=== PATIENT | male | born 1930 | race Caucasian/White ===

== ENCOUNTER 2016-08-20 16:00 | Inpatient (IN) | payer MEDICARE, BC ==
[~2016-08-20] VITALS: Ht 172.7 cm; Wt 96.1 kg
--- NOTE | ~2016-08-20 | OR ---
PATIENT'S NAME: CODY WATERMAN [facility] AGE: 86 Y [address] ROOM: [place] [address] LOCATION: [facility] [place] ADMIT DATE: 08/26/2016 OR/Procedure Report DISCHARGE DATE: FAMILY PHYSICIAN: Jj Nava MD ATTENDING PHYSICIAN: Wally Mejia SURGEON: Wally Mejia MD [employer] HEAD INSPECTOR AND ADJUSTER: Ranjeet Almanzar PA-C DATE OF PROCEDURE: 08/25/2016 PREOPERATIVE DIAGNOSES: 1. History of acute cholecystitis with cholelithiasis, status post cholecystostomy tube for drainage. 2. History of repair of aortic dissection. POSTOPERATIVE DIAGNOSES: 1. Gangrenous cholecystitis with cholelithiasis. 2. Normal intraoperative cholangiogram. PROCEDURE PERFORMED: Laparoscopic cholecystectomy with intraoperative cholangiogram. ANESTHESIA: General. ESTIMATED BLOOD LOSS: 50 mL. SPECIMENS: Gallbladder. CHOLANGIOGRAM FINDINGS: Normal cystic duct and common bile duct anatomy with free flow of contrast into the duodenum. No filling defects. INDICATION: The patient is an 86-year-old gentleman who initially presented with dissecting ascending thoracic aneurysm. Dr. Skaggs did a graft repair, and the patient was on inpatient rehab. Approximately one month ago, he developed cholecystitis while on Plavix. We elected at that time to do a percutaneous cholecystostomy tube for decompression. The patient currently is one month postop. He has been off his anticoagulation, and he agreed to undergo formal laparoscopic cholecystectomy to complete his operative intervention and treatment of his gallbladder disease. DESCRIPTION OF PROCEDURE: After informed consent, the patient was taken to the operating room. After general endotracheal anesthesia, the patient's abdomen was prepped and draped into a sterile field. Local anesthetic infiltrated prior to each incision, the first one made below the umbilicus and carried down to identify the anterior fascia through which a Veress needle inserted. Pneumoperitoneum was created, and trocar and laparoscope inserted. PATIENT'S NAME: CODY WATERMAN [facility] AGE: 86 Y [address] ROOM: [place] [address] LOCATION: [facility] [place] ADMIT DATE: 08/26/2016 OR/Procedure Report DISCHARGE DATE: FAMILY PHYSICIAN: Jj Nava MD ATTENDING PHYSICIAN: Wally Mejia Safe entry was noted. Under direct vision, the remaining trocars were placed in standard position. We visualized the cholecystostomy tube going into the gallbladder. The fundus was very thickened and a lot inflammatory changes which had to be carefully stripped away. We did not harm the transverse colon as we took it off the gallbladder wall attachment. We could tell that the gallbladder likely had gangrenous changes. We had to place an additional 5 mm trocar in the left upper quadrant to use a fan to hold down the transverse colon and duodenum as we exposed the infundibulum. The adhesions were very tenacious at this point, very chronic inflammatory changes noted. We began by helping our critical view of safety by taking down the lateral gallbladder reflection on the liver bed. Once we used electrocautery to score the initial incision into the duodenal ligament, we were able to start carefully and slowly strip down the adhesions. Finally, we were able to see what we thought was the cystic duct. Likely, it was enlarged. We were able to get circumferential control around it. At this point, we elected to do a cholangiogram to prove our anatomy and make sure no retained stones. Our cholangiogram was performed with Isovue-[id number]. The above-mentioned normal anatomy and no filling defect were identified. We removed the catheter, and we now confidently placed 3 clips on the cystic duct and divided it. We carefully dissected and identified presumably a lymphatic duct by the gallbladder and placed a clip on it. Then, we stripped it down to expose the cystic artery. It was clipped x3 and divided, and the gallbladder removed from the liver bed slowly due to chronic adhesions, and electrocautery was used to obtain hemostasis. Once removed, we pulled out the cholecystostomy tube. We put the gallbladder into an EndoCatch bag and brought it out through the umbilical incision in pieces due to the gangrenous changes. We then returned to the right upper quadrant and copiously irrigated and cauterized the liver bed as needed. We felt we had obtained hemostasis. There was no bleeding from the liver bed. We removed the trocars, released the pneumoperitoneum, closed the midline fascia defects with 0 Vicryl, and the skin closed with subcuticular 4-0 Vicryl. Steri-Strips and sterile dressings applied. The patient tolerated the procedure well, transferred to the recovery room in stable condition. MD VICKY MENDOZAS/modl /[id number] d: 09/04/161740 t: 09/17/161740, OPERATIVE SUMMARY
--- NOTE | ~2016-08-20 | DS ---
PATIENT'S NAME: CODY WATERMAN [facility] AGE: 86 Y [address] ROOM: [address] [address] [place] [facility] [place]: 08/26/2016 Discharge Summary DISCHARGE DATE: 09/05/2016 FAMILY PHYSICIAN: Jj Nava MD ATTENDING PHYSICIAN: Alexander Prescott FINAL DIAGNOSES: 1. Gangrenous cholecystitis, cholelithiasis. 2. History of ascending thoracic aneurysm repair. 3. Anemia of acute blood loss secondary to laparoscopic cholecystectomy. 4. Hypertension. 5. Gastroesophageal reflux disease. PROCEDURE: Laparoscopic cholecystectomy with intraoperative cholangiogram. HOSPITAL COURSE: The patient is a pleasant, 86-year-old gentleman who, beginning of July, presented with a dissecting ascending thoracic aneurysm. He underwent a repair per Dr. Skaggs. The patient ended up in inpatient rehab. During his stay, he developed cholecystitis with cholelithiasis while on Plavix. The patient underwent a percutaneous cholecystostomy tube placement for temporizing the current situation. He did well from that standpoint, had clear bile being drained through his cholecystostomy tube. His liver function tests returned to normal. His white count returned to normal. After one month and the stopping of the Plavix, we elected to undergo a gallbladder removal. The patient had this laparoscopic cholecystectomy with intraoperative cholangiogram performed on 08/25/2016. Due to the inflammatory, necrotic nature of the gallbladder, bleeding was noted from the gallbladder fossa. The patient started out anemic and went down to a low of 6.7. He started at 10.6. He received 2 units of blood. This helped stabilize his hemodynamic situation, and his hemoglobin had risen up to 9.4 on last check on 09/01/2016. The patient had continuation of his OT and PT therapy. He was advanced to a regular diet. His antibiotics were discontinued in the postop period. His wounds healed nicely without evidence of infection. His abdomen became benign. He had return of bowel function and advanced to a regular diet. He was reevaluated per Dr. Persaud and found in need of additional inpatient rehab prior to being discharged home. On 09/05/2016, he was accepted into inpatient rehab. The Hospital Service will continue to follow along with Dr. Persaud. The general surgery team will sign off. His medication list is signed and on chart for review. The patient is transferred in stable condition. ALEXANDER PRESCOTT MD PATIENT'S NAME: CODY WATERMAN [facility] AGE: 86 Y [address] ROOM: [place] [address] [place] [facility] [place]: 08/26/2016 Discharge Summary DISCHARGE DATE: 09/05/2016 FAMILY PHYSICIAN: Jj Nava MD ATTENDING PHYSICIAN: Alexander Prescott WTS/modl /[id number] d: 09/05/16 1358 t: 09/17/16 1743, DISCHARGE SUMMARY
--- NOTE | ~2016-08-20 | CON ---
PATIENT'S NAME: CODY WATERMAN [facility] AGE: 86 Y [address] ROOM: [address] [address] [place] [facility] [place]: 08/26/2016 Consultation DISCHARGE DATE: FAMILY PHYSICIAN: Jj Nava MD ATTENDING PHYSICIAN: Wally Mejia REFERRING PHYSICIAN: LAURO JOSEPH MD This is a Consult for Dr. Joseph and Ms. Ranjeet Almanzar. This 86-year-old gentleman whom I know from previous care, he was on Rehab unit from 07/23/2016 until 08/25/2016 when he was discharged, and did undergo cholecystectomy per Dr. Mejia on 08/25/2016 and details on record. He is referred now for rehab GIRP evaluation. PAST MEDICAL HISTORY: 1. Still unsteady with his gait and needs help with activity of daily self- care. 2. Status post type A aortic aneurysm repair per Dr. Skaggs. Details on record. 3. Hypertension. 4. Reflux gastric disease. 5. Possible seizure disorder. 6. Benign prostatic hypertrophy. 7. Acute cholecystitis, was drained, and later on, he did undergo cholecystectomy on 08/25/2016. All details are on record. 8. He was also anemic and on sternal precaution, which has at the present time corrected, and has been discontinued with sternal precautions. He is now alert and oriented. VITAL SIGNS: Blood pressure 116/61, temperature 98.5, pulse 84, and respiratory rate 18. He is 5 feet, 8 inches tall and weighs 96.1 kg. He can follow instructions well, can transfer with minimum assistance; however, he feels very tired early on with his effort and would ask frequently to sit and rest especially when he is up and around. He can ambulate up to 150 feet; however, he is unsteady and needs to use front- wheeled walker. Minimum to contact guard assistance and also with a gait belt. He otherwise will look at his feet and is at high-risk of falling. Neurologically intact at the present time. He is on the following medications: 1. Bumex. 2. Protonix. PATIENT'S NAME: CODY WATERMAN [facility] AGE: 86 Y [address] ROOM: [address] [address] [place] [facility] [place]: 08/26/2016 Consultation DISCHARGE DATE: FAMILY PHYSICIAN: Jj Nava MD ATTENDING PHYSICIAN: Wally Mejia 3. Klonopin. 4. Coreg. 5. Cordarone. 6. Albuterol. 7. Sodium chloride 0.9%. 8. Morphine sulfate. 9. Tylenol. 10. Zofran. At the present time, I feel this gentleman will benefit from intensive rehabilitation of about 2 weeks aiming to discharge home at modified independence and follow on outpatient basis. I will continue him on PT, OT, which has been already initiated for him and I feel that he definitely is well- motivated to achieve those goals. Thank you for this referral. I will take him as soon as we can for intensive rehabilitation. I explained everything to him. He verbalized understanding and agreement with plan of care. MD GABINO MONTENEGRO/artemiol /[id number] d: 09/03/160 t: 09/05/16 0803, CONSULTATION REPORT
[~2016-08-20 16:00] MED LIST: HEADACHE RELIE1 EACH PO; NAPROSYN500 MG PO; TENORETIC PO
--- NOTE | 2016-08-25 17:09 | NUR ---
Significant Event:PT. TO FLOOR AT 1445 WITH LAP JACLYN. PREVIOUSLY ON REHAB BEFORE SURGERY. A/O AND HAS FOUR STAB SITES, 2 MID ABDOMIN ARE SATURATED WITH RED DRAINAGE. MAY S/L IV WHEN TOLERATING CLEAR LIQUIDS. UP TO BR AND TOLERATED WELL. VOIDED LARGE AMOUNT. C/O RUQ ABDOMINAL PAIN. MORPHINE GIVEN IV AT 1530 AND ORAL PAIN MED GIVEN AT 1705. TAKING CLEAR LIQUIDS MAY HAVE REGULAR DIET FOR DINNER. SON HERE FOR A WHILE. HX SMOKER, COPD, AORTIC ARCH REPAIR 07/11/16 WITH AFIB AFTER PROCEDURE. Follow up:
[2016-08-25 17:55] LABS: HEMATOCRIT 37.6 % (33.0-50.0); HEMOGLOBIN 11.6 g/dL (11.0-16.0)
--- NOTE | 2016-08-25 17:58 | NUR ---
PT. DIAPHORETIC AND C/O RUQ PAIN AT 7/10. GAVE 2 ORAL PAIN MED AT 1705, 1720 STILL RATING RUQ PAIN AT 7/10. ATTEMPTED TO SIT PT UP AT BEDSIDE AND HE BACAME DIZZY AND STATED HE FELT BAD ALL OVER. ALERT AND VERBALIZING WELL. BECAME PALE AND RETURNED TO BED. CALLED CHARGE NURSE AND RAPID RESPONSE. PT. INITIAL BLOOD PRESSURE WAS 102/66, P-93, 95% ON 2L PER NC AT 1720. 1730- 66/48, P-101, 1730-93/52, BED PLACED IN [place] POSITION. PT STILL VERBALIZES WELL, A/O. 1740- 96/62, P-95, 1745-94/62, P-98, 94% ON 2L, 1800 115/67, P-93, 97% ON 2L. 500ML NS BOLUS STARTED. PT ALERT AND RESPONDS APPROPRIATELY. C/O RUQ PAIN. 1810- AWAKENS EASILY BUT DOSING NOW, BP 122/75, P-93, 96% 2L PER NC.
[2016-08-25 23:58] LABS: BASOPHIL % 0.1 %; HEMATOCRIT 31.3 % (33.0-50.0); HEMOGLOBIN 9.4 g/dL (11.0-16.0); IMMATURE GRANULOCYTE # 0.1 K/uL (0.0-0.3); IMMATURE GRANULOCYTE % 0.6 %; LYMPHOCYTE # 0.7 K/uL (0.8-4.0); LYMPHOCYTE % 3.1 %; MCH 28.7 pg (27.0-34.0); MCV 95.4 fl (83.0-98.0); MONOCYTE # 1.5 K/uL (0.0-1.0); MONOCYTE % 6.7 %; MPV 10.5 fl (9.4-12.4); NEUTROPHIL # (ANC) 19.7 K/uL (1.4-9.0); NEUTROPHIL % 89.5 %; NRBC % 0 /100WBC (0-0.00); RBC 3.28 M/uL (3.50-5.50); RDW-CV 14.9 % (11.9-14.6)
[2016-08-26] LABS: PLATELET COUNT 277 K/uL (150-450); WBC 22.1 K/uL (4.0-11.0)
[2016-08-26 00:16] LABS: ALBUMIN 2.6 gm/dL (3.5-5.0); CALCIUM 8.3 mg/dL (8.5-10.5); TOTAL PROTEIN 6.4 g/dL (6.0-8.4)
[2016-08-26 00:17] LABS: CREATININE 1.6 mg/dL (0.6-1.3); TOTAL BILIRUBIN 0.5 mg/dL (0.0-1.5)
--- NOTE | 2016-08-26 05:10 | NUR ---
PATIENT IS ATTEMPTED TO GET [place] TO [facility] [place]. HE BECAME EXTREMELY DIAPHORETIC AND HYPOTENSIVE. HIS BP WAS 88/52, HR 101. HE WAS PLACED BACK IN BED. DR. JOSEPH NOTIFIED AND IS IN ROOM TO ASSESS PATIENT. SHORTLY AFTER PATIENT BEGAN TO EXPERIENCE NAUSEA/VOMITING. ZOFRAN WAS ADMINISTERED. 500CC BOLUS ORDERED AND STARTED AT 2022. AT 2099 BP WAS 99/[address], [address] JOSEPH INSTRUCTS TO ADMINISTER 500CC BOLUS OVER 1 HOUR AND TO ASSESS PATIENT'S TOLERANCE OF SITTING UP. AT 2129 BOLUS IS FINISHED AND PATIENT'S HOB IS ELEVATED AT 45 DEGREES. PATIET'S BP DROPS AGAIN TO 81/43. AN ADDITIONAL 500CC BOLUS IS ORDERED. PATIENT HAD NOT YET VOIDED. BLADDER SCAN SHOWS 215 CC. SECOND IV IS STARTED. VS AT 2224: HR 103, 96% ON ROOM AIR, AND BP IS 89/57. PATIENT IS PLACED IN [place]. AT 2229 WHEN THIS BOLUS IS FINISHED, BP IS 79/54 AFTER SITTING HOB U 45 DEGREES AND CONTINUES TO DROP TO 63/47. PATIENT IS NOT TOLERATING WELL AND IS EXPERIENCING EMESIS WITH THE HYPOTENSIVE EPISODES. DR. DENG IS NOTIFIED AT 2239 AND IS IN TO REVIEW CHART AND SEE PATIENT. ORDERS ARE OBTAINED FOR LAB AND XRAY. DRESSINGS TO ABDOMEN ARE UNCHANGED. FOLLOWING THE LAST LITER BOLUS PATIENT'S BP BEGAN TO RESPOND. PATIENT IS TOLD TO LAY FLAT. PATIENT IS MADE NPO FOLLOWING DR. ORONA REVIEW OF KUB. IV ABX ORDERED AND INITIATED. PATIENT IS UPDATED ON PLAN OF CARE.
--- NOTE | 2016-08-26 06:05 | NUR ---
Significant Event: PATIENT HAD LAP JACLYN AFTER BEING ON REHAB FOR AN AORTIC PROCEDURE. HAS BEEN ALERT AND ORIENTED AND HAS 5 INCISIONS TO ABDOMEN 2 OF WHICH WERE CHANGED DUE TO BEING SATURATED. EARLY IN SHIFT PATIENT WAS ASSISTED UP TO SIDE OF BED WHICH RESULTED IN SEVERE ORTHOSTATIC HYPOTENSION, DIAPHORESIS, TACHYCARDIA AND DIZZINESS. PATIENT RECEIVED A TOTAL OF 3L OF IVF AND WAS INSTRUCTED TO LAY FLAT AND NOT GET UP. STAT LABS AND KUB OBTAINED SHOWING WBC OF 22 AND AN ILEUS. PATIENT IS NPO, IV ABX STARTED. ORDER TO PLACE NGT IF VOMITING PERSISTS. NS AT 100ML/HR INFUSING. PATIENT IS FEELING BETTER. LASTEST BP WAS 116/74. MORPHINE ADMINSITERED FOR PAIN. Follow up:
[2016-08-26 06:18] LABS: MCH 28.9 pg (27.0-34.0); MCV 93.2 fl (83.0-98.0); MPV 10.6 fl (9.4-12.4); PLATELET COUNT 244 K/uL (150-450); RBC 3.11 M/uL (3.50-5.50); RDW-CV 15.2 % (11.9-14.6)
[2016-08-26 06:20] LABS: WBC 20.7 K/uL (4.0-11.0)
[2016-08-26 06:28] LABS: ALBUMIN 2.6 gm/dL (3.5-5.0); ANION GAP 16.1 (10.0-19.0); CALCIUM 8.3 mg/dL (8.5-10.5); CREATININE 1.5 mg/dL (0.6-1.3); POTASSIUM 5.1 mMol/L (3.7-5.1); TOTAL BILIRUBIN 0.5 mg/dL (0.0-1.5); TOTAL PROTEIN 6.4 g/dL (6.0-8.4)
[2016-08-26 07:10] LABS: ABSOLUTE NEUTROPHIL CT (ANC) 18.8 K/uL (1.4-9.0); BANDED NEUTROPHIL # 1.4 K/uL (0.0-0.1); BANDED NEUTROPHILS % 7 %; LYMPHOCYTE # 1.4 K/uL (0.8-4.0); LYMPHOCYTE % 7 %; MONOCYTE # 0.4 K/uL (0.0-1.0); SEGMENTED NEUTROPHIL # 17.4 K/uL (1.4-9.0); SEGMENTED NEUTROPHIL % 84 %
--- NOTE | 2016-08-26 15:46 | NUR ---
Met patient at bedside today. Introduced myself and the role of the CM department. Patient is not feeling well today. He lives with his and grand daughter. He also says his son is available at any time. Will continue to follow and offer supports as needed.
[2016-08-26] MEDS ORDERED: CORDARONE,PACE200 MG PO (16:31)
[2016-08-26] MEDS ORDERED: LIPITOR10 MG PO (16:32)
[2016-08-26] MEDS ORDERED: ASPIRIN (CHILDR81 MG PO (16:32)
[2016-08-26] MEDS ORDERED: BUMEX1 MG PO (16:33)
[2016-08-26] MEDS ORDERED: COREG 3.1253.125 MG PO (16:33)
[2016-08-26] MEDS ORDERED: KLONOPIN0.5 MG PO (16:34)
[2016-08-26] MEDS ORDERED: BENADRYL25 MG PO (16:34)
[2016-08-26] MEDS ORDERED: PEPCID20 MG PO (16:35)
[2016-08-26] MEDS ORDERED: COLACE100 MG PO (16:35)
[2016-08-26] MEDS ORDERED: K-TAB OR KLOR-10 MEQ PO (16:36)
[2016-08-26] MEDS ORDERED: TYLENOL325 MG PO (16:37)
[2016-08-26] MEDS ORDERED: PREPARATION H O57 GM TOP (16:41)
[2016-08-26] MEDS ORDERED: ULTRAM50 MG PO (16:42)
[2016-08-26] MEDS ORDERED: PROVENTIL OR V6.7 GM INH (16:43)
[2016-08-26] MEDS ORDERED: NORCO 5-325 TA1 EACH PO (16:45)
--- NOTE | 2016-08-26 17:07 | NUR ---
Significant Event:PT AO. BP HAVE BEEN BETTER THIS SHIFT. RUNNING 100/56-118/64. TITRATED TO ROOM AIR, BUT SATS DROP TO 85%, PUT ON 1L O2. ENCOURAGED IS USE. PT DID GET UP TO BSC AND CHAIR TODAY. STILL C/O DIZZINESS WHEN UP. PT CONSULT BUT PT DID NOT FEEL LIKE DOING ANYTHING AT THE TIME. ABDOMEN IS DISTENDED. CAN HAVE SIPS OF WATER AND ICE CHIPS. HOME MED RECON COMPLETED AND ADDRESSED BY DR AREVALO, DR PRESCOTT WANTS TO HOLD OFF ON PO PILLS UNTIL PT PASSING GAS. NO EMESIS THIS SHIFT. DRESSINGS TO ABDOMEN INTACT. PRN MORPHINE X2, LAST AT 1605. VOIDING SMALL AMOUNTS AT A TIME, BLADDER SCAN FOR 209ML. CHEST XRAY COMPLETED. NEED A UA. LABS IN AM. Follow up: UA, ORTHOSTATICS, PAIN CONTROL
[2016-08-26 18:53] LABS: BILIRUBIN URINE NEGATIVE (NEGATIVE); BLOOD URINE NEGATIVE /UL (NEGATIVE); COLOR URINE YELLOW (YELLOW); GLUCOSE URINE NEGATIVE (NEGATIVE); KETONE URINE NEGATIVE (NEGATIVE); LEUKOCYTES URINE NEGATIVE /UL (NEGATIVE); NITRITE URINE NEGATIVE (NEGATIVE); PROTEIN URINE 15 mg/dL (NEGATIVE); TURBIDITY URINE 1+ (CLEAR); UROBILINOGEN URINE NORMAL (NORMAL)
[2016-08-26 19:02] LABS: RBC URINE NEGATIVE #/HPF (NEGATIVE)
[2016-08-26 19:03] LABS: BACTERIA URINE NEGATIVE (NEGATIVE)
--- NOTE | 2016-08-27 04:43 | NUR ---
Significant Event:PT [id number] PLEASANT WITH CARES AND STAFF. UP TO BEDSIDE COMMODE WITH 1 STAFF ASSIST. DOES WELL. 5 SURGICAL SITES TO ABDOMEN, DRESSING C/D/I. COMPLAINS OF ABDOMINAL PAIN WIHT MOVEMENT. BOWEL SOUNDS ACTIVE, PT IS PASSING GAS. ABDOMEN IS DISTENED AND FIRM, DOES HAVE PAIN WIHT PALPATION HOWEVER STATES THAT HE IS FEELING BETTER WITH EACH HOUR. UA COLLECTED THIS SHIFT, PT VOIDING WITH NO COMLICATION NOTED. NACL RUNNING AT 100ML PER HOUR.LUNG SOUND CLEAR/DIMINISHED IN THE BASES. GENERALIZED EDEMA NOTED. PT 02 PER NASAL CANNULA AT 1L. DENIES SOB WHEN ASKED.VSS DURING SHIFT. IV TO RIGHT FOREARM DC'D DUE TO LEAKING. FLUIDS CHANGED TO LEFT AC IV SITE. Follow up:
[2016-08-27 05:54] LABS: ALBUMIN 2.4 gm/dL (3.5-5.0); ANION GAP 14.3 (10.0-19.0); BLOOD UREA NITROGEN 38 mg/dL (6-24); CALCIUM 7.9 mg/dL (8.5-10.5); CHLORIDE 106 mMol/L (96-110); CO2 26 mMol/L (22-32); MAGNESIUM 2.1 mg/dL (1.3-2.6); PHOSPHORUS 2.2 mg/dL (2.5-4.9); POTASSIUM 4.3 mMol/L (3.7-5.1); SODIUM 142 mMol/L (135-145)
[2016-08-27 05:59] LABS: ESTIMATED GFR (MDRD EQUATION) > 60
[2016-08-27 06:08] LABS: BASOPHIL % 0.2 %; EOSINOPHIL % 0.2 %; IMMATURE GRANULOCYTE # 0.1 K/uL (0.0-0.3); IMMATURE GRANULOCYTE % 0.6 %; LYMPHOCYTE # 1.3 K/uL (0.8-4.0); MCV 93.9 fl (83.0-98.0); MONOCYTE # 1.3 K/uL (0.0-1.0); MONOCYTE % 10.1 %; MPV 10.1 fl (9.4-12.4); NEUTROPHIL # (ANC) 10.5 K/uL (1.4-9.0); NEUTROPHIL % 78.9 %; NRBC % 0 /100WBC (0-0.00); RDW-CV 15.7 % (11.9-14.6); WBC 13.2 K/uL (4.0-11.0)
[2016-08-27 06:11] LABS: HEMATOCRIT 21.5 % (33.0-50.0); HEMOGLOBIN 6.7 g/dL (11.0-16.0); MCH 29.3 pg (27.0-34.0); MCHC 31.2 gm/dL (32.0-36.5); PLATELET COUNT 173 K/uL (150-450); RBC 2.29 M/uL (3.50-5.50)
[2016-08-27 12:57] LABS: HEMATOCRIT 20.7 % (33.0-50.0)
[2016-08-27 13:05] LABS: HEMOGLOBIN 6.4 g/dL (11.0-16.0)
--- NOTE | 2016-08-27 14:49 | NUR ---
Phone call placed to patient's son Bao at [phone] to discuss the family's plan/goal for patient with discharge. Bao did not answer so I left him a voicemail introducing myself and explaining my role with his father's care. Will wait to hear back from Bao.
--- NOTE | 2016-08-27 15:27 | NUR ---
Is A/O.Old chest incision healing & scabbed over.5 abd.stab sites covered with gauze/tegaderm drsg which are D/I.Taking sips liq.Abd.is firm,+ bowel sounds.Is passing flatus.Had dulcolax suppository at 0945.Had really small hard formed dk brown stool.Had CT of chest/abd.this afternoon.To get 1 unit blood today.Hgb was 9 yesterday and 6.7 at 0600 this morning and 6.4 this afternoon.Did have aortic aneurysm repair recently.Need stool for hematest.Has been up in chair and amb.in marcus with PT.Is pale.Gets somewhat SOB on activity.Also some dizziness when up.
[2016-08-27 18:59] LABS: HEMATOCRIT 24.4 % (33.0-50.0)
[2016-08-27 19:00] LABS: HEMOGLOBIN 7.6 g/dL (11.0-16.0)
[2016-08-28 00:29] LABS: HEMATOCRIT 24.8 % (33.0-50.0)
[2016-08-28 00:31] LABS: HEMOGLOBIN 7.9 g/dL (11.0-16.0)
--- NOTE | 2016-08-28 04:46 | NUR ---
Significant Event: A&Ox3, hypotension this shift. BP: 100s/50s-80s/50s. All other VSS on room air. 1L O2 applied at HS. Lap sites X5 to ABD, dressings C/D/I. New bruising around lap sites. 2 units PRBC given. Last HGB 7.9, checking H&H Q6hrs, Orders to call MD if HGB less than 7. Patient transfers with 1-2PA, GB, walker. 2PA for saftey as patient can become dizzy upon standing. No complaints of dizziness this shift. Albumin IV given for lower BPs. Daily weight. Voids per BSC. Morphine and tylenol given for pain control. Follow up: monitor BPs, continue with plan of care.
[2016-08-28 05:47] LABS: BASOPHIL % 0.4 %; EOSINOPHIL # 0.1 K/uL (0.0-0.5); EOSINOPHIL % 0.6 %; HEMATOCRIT 22.4 % (33.0-50.0); IMMATURE GRANULOCYTE % 0.2 %; LYMPHOCYTE # 0.8 K/uL (0.8-4.0); LYMPHOCYTE % 9.6 %; MCV 92.2 fl (83.0-98.0); MONOCYTE % 12.4 %; MPV 9.8 fl (9.4-12.4); NEUTROPHIL # (ANC) 6.3 K/uL (1.4-9.0); NEUTROPHIL % 76.8 %; NRBC % 0 /100WBC (0-0.00); RBC 2.43 M/uL (3.50-5.50); RDW-CV 15.7 % (11.9-14.6); WBC 8.2 K/uL (4.0-11.0)
[2016-08-28 05:51] LABS: HEMOGLOBIN 7.2 g/dL (11.0-16.0); MCH 29.6 pg (27.0-34.0); MCHC 32.1 gm/dL (32.0-36.5); PLATELET COUNT 122 K/uL (150-450)
[2016-08-28 06:00] LABS: ANION GAP 13.7 (10.0-19.0); BLOOD UREA NITROGEN 25 mg/dL (6-24); CHLORIDE 104 mMol/L (96-110); CO2 25 mMol/L (22-32); CREATININE 0.7 mg/dL (0.6-1.3); ESTIMATED GFR (MDRD EQUATION) > 60; MAGNESIUM 2.2 mg/dL (1.3-2.6); POTASSIUM 3.7 mMol/L (3.7-5.1); SODIUM 139 mMol/L (135-145)
[2016-08-28 11:31] LABS: HEMATOCRIT 24.8 % (33.0-50.0); HEMOGLOBIN 7.9 g/dL (11.0-16.0)
--- NOTE | 2016-08-28 14:40 | NUR ---
1400 UNABLE TO TREAD POWER GLIDE
--- NOTE | 2016-08-28 18:33 | NUR ---
AAOx3. Cooperative with cares. Up w/1-2assistSKYLAR. PIV to R) outer FA w/IVF and Abx infusing. Feeling unwell and not receptive to PO fluids. Encourage increased intake. Encourage use of IS. Intermittently on 1-2liters O2 today for sats in upper 80s. Passing flatus. Showered today with assist. Lap site dressings dry and intact to abdomen; some ecchymosis noted.
[2016-08-28 19:21] LABS: HEMATOCRIT 24.3 % (33.0-50.0)
[2016-08-28 19:25] LABS: HEMOGLOBIN 7.8 g/dL (11.0-16.0)
[2016-08-29 03:25] LABS: BASOPHIL % 0.3 %; EOSINOPHIL # 0.1 K/uL (0.0-0.5); EOSINOPHIL % 1.4 %; HEMATOCRIT 24.7 % (33.0-50.0); IMMATURE GRANULOCYTE % 0.3 %; LYMPHOCYTE % 13.6 %; MCH 29.3 pg (27.0-34.0); MCHC 31.2 gm/dL (32.0-36.5); MCV 93.9 fl (83.0-98.0); MONOCYTE # 0.8 K/uL (0.0-1.0); MONOCYTE % 10.6 %; MPV 10.2 fl (9.4-12.4); NEUTROPHIL # (ANC) 5.4 K/uL (1.4-9.0); NEUTROPHIL % 73.8 %; NRBC % 0 /100WBC (0-0.00); PLATELET COUNT 143 K/uL (150-450); RBC 2.63 M/uL (3.50-5.50); RDW-CV 15.9 % (11.9-14.6); WBC 7.3 K/uL (4.0-11.0)
[2016-08-29 03:31] LABS: HEMOGLOBIN 7.7 g/dL (11.0-16.0)
--- NOTE | 2016-08-29 04:38 | NUR ---
Significant Event: Pt alert and Oriented x3. 1 assist with gaitbelt and walker. tele on no calls. hypotensive at times otherwise VSS. 1 L too keep sat >90 percent. denies SOB. Uses bedside commode. unwilling to ambulate more. IV in right forarm NS 50 ML/HR. weight 96.1 KG this shift. DW I/O. encourage PO intake. tylenol given x2 for complaints of pain. with relief. passing gas. lap sites intact with mulitple bruising through out abdomen. q8hr H/H. 7.7 HGB throughout this shift. kary hernandez on durring the day. Follow up:
--- NOTE | 2016-08-29 10:10 | NUR ---
A - NUT F/U. ENC PO INTAKE. PRBCS GIVEN. LABS: BUN/CR 25/0.7, ALB 2.4, HGB/HCT 7.7/24.7 MEDS: PROTONIX, ZYVOX, ZOSYN, NAUSEA DIET: FULL LIQUID. INTAKE: SIPS NEEDS: [id number] KCAL, 105-140 G PRO D - INADEQUATE NUTRIENT INTAKE R/T DECREASED APPETITE AEB INTAKE RECORD, DIET ORDER HX. I - GOAL FOR ORAL INTAKE TOLERANCE. GOAL FOR INCREASED ORAL INTAKE. WILL ADD ENSURE TID M/E - WILL MONITOR INTAKE F/U IN 4-5 DAYS.
[2016-08-29 11:27] LABS: HEMATOCRIT 24.7 % (33.0-50.0)
[2016-08-29 11:30] LABS: HEMOGLOBIN 7.7 g/dL (11.0-16.0)
--- NOTE | 2016-08-29 17:16 | NUR ---
AAOx3. Cooperative with cares. Up w/1 assist, GB, walker. BM x3 today. Last one diarrhea, but brown. Hat in backside for Cdiff sample; need order too. Tolerating soft diet slowly. Had chicken noodle soup, ice cream today. Advanced to soft diet as patient doesn't care for most full liquids available. Ambulation, d/c'ing epidural, IS
[2016-08-29 19:11] LABS: HEMATOCRIT 25.4 % (33.0-50.0)
--- NOTE | 2016-08-30 02:40 | NUR ---
Significant Event: Pt alert and oriented x3. cooperative with cares. 1 assist with gait belt. pt has tremors at times. tele on no calls. RA through out the shift at sats >90%. denies any SOB. DW, I/O. encourage PO intake of fluids. tylenol given x1 for some discomfort. weight 96.1. kary hose on durring the day. VSS. Lap sites intact with bruising through out the abdomen. pt slept on and off through out the night Follow up:
[2016-08-30 05:51] LABS: BASOPHIL % 0.5 %; EOSINOPHIL # 0.2 K/uL (0.0-0.5); EOSINOPHIL % 3.6 %; IMMATURE GRANULOCYTE % 0.3 %; LYMPHOCYTE # 0.7 K/uL (0.8-4.0); LYMPHOCYTE % 11.4 %; MCH 29.6 pg (27.0-34.0); MCHC 32.1 gm/dL (32.0-36.5); MCV 92.3 fl (83.0-98.0); MONOCYTE # 0.7 K/uL (0.0-1.0); MONOCYTE % 11.4 %; MPV 9.8 fl (9.4-12.4); NEUTROPHIL # (ANC) 4.5 K/uL (1.4-9.0); NEUTROPHIL % 72.8 %; NRBC % 0 /100WBC (0-0.00); PLATELET COUNT 140 K/uL (150-450); RDW-CV 15.9 % (11.9-14.6); WBC 6.1 K/uL (4.0-11.0)
[2016-08-30 05:53] LABS: HEMOGLOBIN 7.7 g/dL (11.0-16.0)
[2016-08-30 06:09] LABS: ANION GAP 15.2 (10.0-19.0); BLOOD UREA NITROGEN 14 mg/dL (6-24); CALCIUM 8.1 mg/dL (8.5-10.5); CHLORIDE 106 mMol/L (96-110); CO2 24 mMol/L (22-32); CREATININE 0.7 mg/dL (0.6-1.3); ESTIMATED GFR (MDRD EQUATION) > 60; POTASSIUM 3.2 mMol/L (3.7-5.1); SODIUM 142 mMol/L (135-145)
--- NOTE | 2016-08-30 18:04 | NUR ---
Significant Event: Patient alert and oriented. Tylenol 1000 mg given at 0851 for c/o abdominal discomfort. Up to the bathroom with assist to void and patient had a small BM late this afternoon. Ambulated in the hallway x 2 and has been up in the recliner all shift. Patient short of breath with activity. K+ level at 3.2 this morning and patient received KCL 40 meq orally at 1315 and 1730. Started on Coreg 3.125mg bid. Continues on IV Zosyn. Telemetry on with no calls received. Follow up: Ambualte this evening.
--- NOTE | 2016-08-31 03:30 | NUR ---
SIGNIFICANT EVENT: Patient alert & oriented. C/O numbness/tingling bilateral LE's/feet. States that this has been happening more since his heart surgery but is more noticeable/frequent. Also c/o spasticity in bilateral upper extremities to upper neck/chin area. 1000 mg Tylenol given approx 2029 for abd pain/back pain. Full liquid diet - wants chocolate ice cream and milk for breakfast. Got 40 mEq KCl yesterday. Tele on - no calls. 1 JAGDISH dorantes and SKYLAR. VSS on RA. Cooperative with cares.
[2016-08-31 05:11] LABS: BASOPHIL % 0.4 %; EOSINOPHIL # 0.4 K/uL (0.0-0.5); EOSINOPHIL % 4.7 %; HEMOGLOBIN 9.3 g/dL (11.0-16.0); IMMATURE GRANULOCYTE % 0.4 %; LYMPHOCYTE % 12.4 %; MCH 29.9 pg (27.0-34.0); MCV 93.9 fl (83.0-98.0); MONOCYTE # 0.8 K/uL (0.0-1.0); MONOCYTE % 10.2 %; MPV 9.8 fl (9.4-12.4); NEUTROPHIL # (ANC) 5.8 K/uL (1.4-9.0); NEUTROPHIL % 71.9 %; NRBC % 0 /100WBC (0-0.00); RBC 3.11 M/uL (3.50-5.50); RDW-CV 16.3 % (11.9-14.6); WBC 8.1 K/uL (4.0-11.0)
[2016-08-31 05:13] LABS: HEMATOCRIT 29.2 % (33.0-50.0); MCHC 31.8 gm/dL (32.0-36.5); PLATELET COUNT 199 K/uL (150-450)
[2016-08-31 05:28] LABS: ANION GAP 11.9 (10.0-19.0); BLOOD UREA NITROGEN 16 mg/dL (6-24); CALCIUM 8.7 mg/dL (8.5-10.5); CHLORIDE 106 mMol/L (96-110); CO2 27 mMol/L (22-32); CREATININE 0.7 mg/dL (0.6-1.3); ESTIMATED GFR (MDRD EQUATION) > 60; POTASSIUM 3.9 mMol/L (3.7-5.1); SODIUM 141 mMol/L (135-145)
--- NOTE | 2016-08-31 05:54 | NUR ---
SIGNIFICANT EVENT: Patient alert & oriented. VSS on RA. Slept some in recliner until approx 2014. Tylenol x1 at that time with noted relief. C/O more noticeable bilateral lower extremity numbness/tingling, tightness in forehead, increased upper extremity tremors/shaking. Hospitalist visited this a.m. - new order for Klonopin. 570 PO and 193 IV in. 3 voids, 2 sm BM. 1 PA with walker, GB. IV to R) FA is SL except intermittent antibiotics. Pleasant and cooperative with cares.
--- NOTE | 2016-08-31 16:59 | NUR ---
Significant Event: Patient alert and oriented. Up to the bathroom with assist to void and patient has had 1 small, loose BM for the shift. Ambulated in the hallway x 2 and up in the recliner this afternoon. Patient short of breath with activity. Patient states wanting to sleep "all the time". Continues on IV Zosyn. Patient states that his tremors are less today. Patient states having minimal discomfort and has refused any need for pain meds. Lap sites to abdomen covered with gauze and tegaderm. Large bruising noted to his RLQ and lower abdomen. Telemetry on with no calls received. Follow up: Ambulate this evening.
[2016-09-01 06:52] LABS: HEMATOCRIT 29.8 % (33.0-50.0); HEMOGLOBIN 9.4 g/dL (11.0-16.0)
--- NOTE | 2016-09-01 07:11 | NUR ---
SIGNIFICANT EVENT: Patient alert & oriented. 1 PA walker and gaitbelt. Tylenol x1, last given approx 2229. Regular diet but only taking some solids, poor appetite - prefers broth, ice cream, bananas. PIV to R) FA is SL, intermittent antibiotics - flushes well, no BR. VSS on RA, some tachypnea on exertion. Ambulate in marcus x1. Pleasant and cooperative with cares.
--- NOTE | 2016-09-01 15:02 | NUR ---
Consult received this morning to see if patient can return to [facility] for a short period of time to get stronger before going home. I contacted Lizet at [facility] and she said they would assess patient and see if they would have a bed available for him this week. I will wait to hear back from her and I will talk to the patient and family.
--- NOTE | 2016-09-01 16:36 | NUR ---
SIGNIFICANT EVENT: PT AOX3. VSS ON RA, AFEBRILE. DAILY ORTHOSTATICS DOCUMENTED ON CHART. TELEMETRY ON WITH NO CALLS. IV TO R FA, SL- CONTINUES ON INTERMITTENT IV ABX. PT/OT WORKING WITH. AMBULATES WITH SBA, GAITBELT AND WALKER. REGULAR DIET ORDERED, ONLY HAD MILK AND BROTH FOR BREAKFAST- TALKED HIM INTO TRYING MORE FOR LUNCH AND HE AT 100% PERSONAL PIZZA, BUT ONLY BROTH AND BANANA FOR DINNER. LAP SITES TO ABDOMEN INTACT. MULTIPLE SMALL BMs THIS SHIFT, MOSTLY LIQUID. PLAN IS POSSIBLY TO GIRP THIS WEEK. FOLLOW UP: AMBULATE, CONTINUE TO MONITOR
--- NOTE | 2016-09-02 05:20 | NUR ---
Significant Event: ALERT AND ORIENTED FORGETFUL AT TIMES. AMBULATES WITH 1-2 ASSIST WALKER GAITBELT. REGULAR DIET. NEEDS ENCOURAGEMENT TO EAT. TELE. VS WNL ON RA. AFEBRILE. LAP SITES OT ABDOMEN INTACT. TELE NO CALLS. CONTINUES ON IV ANTIBOTIC. COORPERATIVE WITH CARES.
--- NOTE | 2016-09-02 12:38 | NUR ---
Significant Event: Alert/oriented. Up in room and halls with standby assist with walke and gait belt. IS at bedside - needs encouraged to use. Tele on - running normal sinus rhythm. Occasional non-productive cough. Lap sites x4 - dressings intact w/ echhymmotic areas. Chest incisions from previous surgery healing w/ scabs. Patient tolerating regular diet well. Rehab is to come assess pt for possible transfer as early as 09/04 when they have a bed open. Pttiing edema to lower extremities. CHAD hose on. Bumex dose increased today. Open area to mid back noted - educated patient on importance of staying off of back and turning side to side while in bed to prevent further breakdown. Follow up: Encourge and assist with activity. Turning q 2 hrs - monitor area on back. Transfer to rehab on 09/04?
--- NOTE | 2016-09-02 14:45 | NUR ---
A-NUTRITION F/U OPEN AREA TO MID-BACK. 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 PO INTAKE 75-100% SINCE YESTERDAY; NOT MANY FOOD CHOICES/VARIETY AT MEALS. BANANA, MILK AND ENSURE AT BRK, PIZZA AND ENSURE AT LUNCH AND BANANA AND ENSURE ENLIVE AT DINNER. PER RN REPORT, PT'S APPETITE IS IMPROVED TODAY AND HE ACTED INTERESTED IN FOOD. EST NUTR NEEDS: [id number] KCALS AND 105-140 GM PROTEIN D-AT NUTRITION RISK W/INADEUATE INTAKE OF NUTRIENTS R/T DECREASED APPETITE AEB INTAKE RECORDS, FOOD CHOICES. I-1)CONTINUE W/ENSURE ENLIVE TID W/MEALS 2)ADD ENSURE PUDDING BID AT L/D M/E-GOAL: PO INTAKE TO MEET >/=50% OF PT'S NUTRIENT NEEDS BY NEXT F/U 1)F/U PO INTAKE, SUPPLEMENT, AND POC IN 3-4 DAYS 2)ASSIST NEEDED
--- NOTE | 2016-09-03 05:22 | NUR ---
Significant Event: ALERT AND ORIENTATED X 3 FORGETFUL AT TIMES. ALARMS ON IN CHAIR AND BED WILL SELF TRANSFER. AMBULATES WITH WALKER, GB AND STAND BY ASSIST IN HALLS AND TO BATHROOM. TELE ON NO CALLS THIS SHIFT. CHAD HOSE ON THE AM OFF HS. LAP SISTES X4 DRESSINGS INTACT. OLD MIDLINE INCISION SCABED OVER FROM PREVIOUS SURGERY. OPEN AREA ON BACK ENCOURAGE TO REPOSITON Q 2 HOURS TO PREVENT BREAK DOWN. APPLIED LOTION TO BACK AT HS. SAT IN CHAIR UNTIL READY FOR BED WITH FEET ON 2 PILLOWS. COORPERATIVE WITH CARES. Follow up:
--- NOTE | 2016-09-03 16:53 | NUR ---
Phone call from Lizet on [facility] approximately [address] Persaud is planning on evaluating patient today and if he accepts patient the patient would not be able to come until Thursday as the patient that was to discharge today will not discharge until tomorrow. At approximately [address] Persaud on the floor and he just finished assessing patient. Dr. Persaud states patient can come to [facility] on Thursday and told me to call Lizet tomorrow to confirm bed and time. I let Noemy real estate office supervisor Nurse know that patient is not able to go until Thursday now. Will meet with patient tomorrow after I confirm with Lizet.
--- NOTE | 2016-09-03 17:38 | NUR ---
Significant Event:Is A/O.Has had no c/o pain.No N/V but not much of an appetite.SL lt.forearm.Voiding ok & had 3 small stools.Up with walker & standby or 1 assist.Maybe to [facility] on Thu. Follow up:
--- NOTE | 2016-09-04 05:04 | NUR ---
Significant Event: AAOX3, REMEMBERS LIMITATIONS, BUT REFUSES TO UTILIZE CALL LIGHT SYSTEM. ALARM ON BED, LEVEL 2 AT ALL TIMES. TELE ON, NO CALLS THIS SHIFT. PT C/O ITCHY BACK, LOTION APPLIED X2. 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 BOTTOM A LITTLE REDDENED AND BLANCHABLE, ENCOURAGED PT TO KEEP HOB FAR DOWN TOLERABLE, AND TO SHIFT POSITIONS IN BED. COOPERATIVE WITH CARES. RESTED WELL THROUGHOUT SHIFT. Follow up:
--- NOTE | 2016-09-04 08:31 | NUR ---
PT MOVED TO NO RISK W/ CONSISTENT 75-100% ORAL INTAKE. WILL CONTINUE SUPPLEMENTS TO MAINTAIN NUTRITION STATUS.
--- NOTE | 2016-09-04 13:50 | NUR ---
Phone call to Lizet on [facility] this morning. They are able to accept patient at 0900 tomorrow, ThursdaySeptember 05. I met with patient at approximately 1015 and notified him of the plan to transfer to [facility] tomorrow. Patient is in agreement with this plan. Packet has been started.
--- NOTE | 2016-09-04 14:34 | NUR ---
PT REFUSED SHOWER HE STATES HE HAD ONE YESTERDAY. PT IS ALSO REFUSING TO WEAR GATE BELT WHEN AMBULATING TO THE BATHROOM. HE TRIED TO REFUSE SOCKS BUT WAS ABLE TO CONVINCE THAT THEY WERE IMPORTANT.
--- NOTE | 2016-09-04 17:04 | NUR ---
Significant Event: Patient up with standby assist and doing well. Does know how to turn off bed alarm by himself. Needs encouraged to use call light prior to getting up to the bathroom. Denies needs. Has worked with therapy. Denies pain. Should go over to inpatient rehab tomorrow at 0900. Follow up: Continue to monitor.
--- NOTE | 2016-09-05 04:00 | NUR ---
Patient alert and oriented x3, pleasant and cooperative, has called neal for toileting however it was passed on that he knows how to shut off the bed alarm, refused to wear gaitbelt during ambulation does fine standby assit with walker to the bathroom. To go to [facility] today, has rested well tonight
--- NOTE | 2016-09-05 07:35 | NUR ---
Pt had lap cortez on 08/25. Lap sites 4 to abdomen, steri-strips are loose, falling off. Lots of bruising to abdomen. Healed incision to chest from AAA previously repaired. Had episodes of hypotension post-op lap cortez, dropping hgb, emesis. Xray showed ileus, CT scan of abdomen showed bleeding from Liver. PRBCs transfused. Pt has since stabilized. Telemtry on. PT/OT working with. Ambulates with SBA, walker. Tolerates regular diet, does have decreased appetite still. Last BM 09/03. Saline lock to R fa. AOx3. Vitals this am 106/55, 82HR, 14RR, 91% RA, 98.4. Lungs clear and diminished. Bowel sounds active. Denies pain.
== END 2016-09-05 10:05 | disposition other institution (70) | DRG 853 ==
LOC: GMSU 08-25 10:01
PROVIDERS: Hospitalist; Internal Medicine; Physician Assistant; ADMIT Surgery
PROC: 0FT44ZZ Resection of Gallbladder, Percutaneous Endoscopic Approach (ICD-10-PCS; principal; 2016-08-25)
PROC: BF10YZZ Fluoroscopy of Bile Ducts using Other Contrast (ICD-10-PCS; 2016-08-25)
PROC: 30233N1 Transfusion of Nonautologous Red Blood Cells into Peripheral Vein, Percutaneous Approach (ICD-10-PCS; 2016-08-27)
DX: A41.9 Sepsis, unspecified organism (principal); J96.01 Acute respiratory failure with hypoxia; K80.12 Calculus of gallbladder with acute and chronic cholecystitis without obstruction; J44.9 Chronic obstructive pulmonary disease, unspecified; G40.909 Epilepsy, unspecified, not intractable, without status epilepticus; I48.0 Paroxysmal atrial fibrillation; D62 Acute posthemorrhagic anemia; I10 Essential (primary) hypertension; K91.3 Postprocedural intestinal obstruction; K21.9 Gastro-esophageal reflux disease without esophagitis; Z79.01 Long term (current) use of anticoagulants; Z79.82 Long term (current) use of aspirin
CPT/HCPCS: C1751; C9113; J0694; J1100; J1650; J2001; J2020; J2270; J2405; J2543; J3370; J7030; J7040; J7050; J7120; P9016; P9047; Q9967

== ENCOUNTER 2016-09-05 10:17 | Inpatient (IN) | payer MEDICARE, BC ==
[~2016-09-05] VITALS: Ht 177.8 cm; Wt 91.9 kg
--- NOTE | ~2016-09-05 | HP ---
PATIENT'S NAME: CODY WATERMAN [facility] AGE: 86 Y [address] ROOM: [place] [address] LOCATION: [facility] ADMIT DATE: 09/05/2016 History & Physical DISCHARGE DATE: FAMILY PHYSICIAN: Jj Nava MD ATTENDING PHYSICIAN: Wally Persaud DATE OF SERVICE: HISTORY OF PRESENT ILLNESS: This 86-year-old gentleman was admitted to rehab unit at [facility] after cholecystectomy and on 09/05/2016 for continuous medical treatment and intensive rehabilitation. 1. Unstable gait. 2. Dependent on activities of daily and self-care. 3. Status post marked weakness with anemia, status post cholecystectomy. At this time, he is alert and oriented. Vitals on admission were as follows: Blood pressure 106/55, temperature 98.4, pulse 82, respiratory rate 14, he is 5 feet 8 inches tall and weighs 96.1 kg. ALLERGIES: NO KNOWN ALLERGIES. MEDICATIONS: He is on the following medications: 1. Cordarone 200 mg p.o. daily. 2. Bumex 2 mg p.o. daily. 3. Coreg 3.125 mg p.o. twice daily with meals. 4. Klonopin 0.5 mg p.o. twice daily. 5. Protonix 40 mg p.o. daily at 7 o'clock. 6. Sodium chloride 0.9% per protocol IV as needed. 7. Tylenol 1000 mg p.o. 3 times daily as needed p.r.n., do not exceed acetaminophen 4 g q.24 hours. 8. Zofran 4 mg IV or p.o. q.4 hours as needed. 9. KCl 20 mEq p.o. daily. 10. Albuterol 6.7 mg 2 puffs q.4 hours as needed. 11. Albuterol 2.5 mg q.4 hours as needed. 12. Naprosyn 500 mg twice daily. 13. Aspirin with acetaminophen and caffeine 1 tablet p.o. q.6 hours. 14. Aspirin 81 mg p.o. daily. 15. Lipitor 10 mg p.o. daily. 16. Benadryl 12.5 mg p.o. at night. 17. Colace 100 mg p.o. b.i.d. 18. Pepcid 20 mg p.o. b.i.d. 19. Preparation H as needed locally. 20. Ultram 50 mg p.o. daily. PATIENT'S NAME: CODY WATERMAN [facility] AGE: 86 Y [address] ROOM: [place] [address] LOCATION: [facility] ADMIT DATE: 09/05/2016 History & Physical DISCHARGE DATE: FAMILY PHYSICIAN: Jj Nava MD ATTENDING PHYSICIAN: Wally Persaud 21. [place] 5/325 mg p.o. q.4 hours. PAST MEDICAL HISTORY: 1. Significant history of possible seizure disorder. 2. Recently, he did have an ascending aortic aneurysm repair. 3. Bilateral thoracocentesis for fluid accumulation per history and recently. 4. COPD. 5. Reflux gastric disease. 6. Cholecystectomy recently per Dr. Mejia. 7. Anemia. 8. Hypertension. 9. Possible seizure disorder. At the present time, we will put on intensive PT/OT 3 hours per day, 15 hours per week for the coming 2 weeks aiming to discharge on modified independence. Note, I did see this gentleman on recent consult on 09/03/2016 and recommended 2 weeks of intensive rehabilitation with PT/OT and send him afterwards on a regular basis for outpatient followup and today on admission on 09/05/2016, upon re-evaluation, I recommend intensive rehab for about 2 weeks aiming to discharge with modified independence. We will send in the a.m. CBC, CMS, and prealbumin, which is back today. CBC is as follows: White BC 6.6, RBC 3.09, hemoglobin 9.1, hematocrit 29.2, and platelets 225. CMS: Sodium 137, potassium 3.4, we will adjust. Chloride 100, CO2 28, BUN 21, creatinine 0.7, and glucose 91. PT 12.8 and INR 1.2. UA grossly normal. Prealbumin 10.0. He can ambulate up to 150 with no assistive device slowly, but is fatiguing early with effort. All the plan of care was explained to him in detail. He verbalized understanding and agreement with plan of care. PATIENT'S NAME: CODY WATERMAN [facility] AGE: 86 Y [address] ROOM: [place] [address] LOCATION: [facility] ADMIT DATE: 09/05/2016 History & Physical DISCHARGE DATE: FAMILY PHYSICIAN: Jj Nava MD ATTENDING PHYSICIAN: Wally Persaud MD WMS/modl /[id number] D: [id number] T: [id number] HISTORY & PHYSICAL
--- NOTE | ~2016-09-05 | DS ---
PATIENT'S NAME: CODY WATERMAN [facility] AGE: 86 Y [address] ROOM: [address] [place], [place] [address] LOCATION: [facility] ADMIT DATE: 09/05/2016 Discharge Summary DISCHARGE DATE: FAMILY PHYSICIAN: Jj Nava MD ATTENDING PHYSICIAN: Alexander Cornell HISTORY OF PRESENT ILLNESS: This 86-year-old gentleman was readmitted to rehab unit on 09/05/2016 after he did undergo a laparoscopic cholecystectomy and on 09/19/2016 is discharged to home on 09/11/2016. He is doing well, alert, and oriented. PHYSICAL EXAMINATION: VITAL SIGNS: Blood pressure 96/52, temperature 98.1, pulse 72, respiration rate 14. MUSCULOSKELETAL: He can transfer independently. He ambulated 600 feet x1, 300 feet x1, and again in the p.m., plan was 300 feet x1 with forward flex posture and frequently he will use rails and/or wall to support himself a little bit with forward bent posture. He will go on outpatient PT/OT 3 times per week for the coming 4 weeks. I will see him thereafter. Follow up with Dr. Skaggs and Dr. Mejia each as he sees fit. He must follow with his family physician as soon as possible. He should not drive until he is re-evaluated. Medication given as follows for 30 days and any renewals would be through his family physician. MEDICATIONS: 1. Cordarone 200 mg p.o. daily. 2. Aspirin 81 mg p.o. daily. 3. Lipitor 10 mg every day. 4. Bumex 2 mg p.o. daily. 5. Coreg 3.125 mg b.i.d. 6. Klonopin 0.5 mg p.o. b.i.d. 7. Benadryl 12.5 mg p.o. at night at bedtime. 8. Colace 100 mg p.o. b.i.d. 9. Naprosyn 500 mg p.o. twice daily. 10. Protonix 40 mg p.o. q.700. 11. K tablet 20 mEq p.o. daily. 12. Ultram 50 mg p.o. q.6 hours as needed, 46 of them, renewal through his family physician. 13. Albuterol sulfate 2 puffs every 4 hours as needed. PATIENT'S NAME: CODY WATERMAN [facility] AGE: 86 Y [address] ROOM: [place] [address] LOCATION: [facility] ADMIT DATE: 09/05/2016 Discharge Summary DISCHARGE DATE: FAMILY PHYSICIAN: Jj Nava MD ATTENDING PHYSICIAN: Alexander Cornell FINAL DIAGNOSES: 1. Unstable gait. 2. Dependent activities of daily and self-care. 3. Marked weakness, not now, improving. 4. Status post laparoscopic cholecystectomy on 08/25/2016. 5. Hypertension. 6. Benign prostatic hypertrophy. 7. 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 8. Chronic obstructive pulmonary disease. 9. Seizure disorder at one point, now stable. 10. Anemia. 11. Reflux gastric disease. FOLLOWUP: 1. The patient is advised to follow with his family physician as soon as possible. All medication that are given to him renewal or change per his family physician. 2. He will follow up with me in 4 weeks. Meanwhile, he will continue with PT/OT 3 times per week for 4 weeks. 3. We will follow with Dr. Skaggs and Dr. Mejia each as he sees fit. 4. He must follow with his family physician as soon as possible. No driving until he is re-evaluated. All the above was explained to him in detail and all his questions answered. He verbalized understanding and agreement with plan of care. ALEXANDER CORNELL MD WMS/modl /[id number] d: 09/11/16737 t: 09/11/16820, DISCHARGE SUMMARY
--- NOTE | ~2016-09-05 | CON ---
PATIENT'S NAME: ORACIO WATERMAN [facility] AGE: 86 Y [address] ROOM: [address] [address] LOCATION: [facility] ADMIT DATE: 09/05/2016 Consultation DISCHARGE DATE: 09/11/2016 FAMILY PHYSICIAN: Jj Nava MD ATTENDING PHYSICIAN: Wally Cornell DATE OF CONSULTATION: 09/10/2016 REFERRING PHYSICIAN: Wally Mejia MD Team members reporting include: Dr. Cornell; Lizet Albarado, public health social worker; Kalyn Law, RN; Katlyn Chavarria, PT; Christel Mcnamara, PT; Brittany Fernandez, OT; Mandy Robertson, therapeutic rec; and Sister Donna Orozco, Pastoral Care. CURRENT STATUS: Includes: Oracio is an 86-year-old man, who admitted to our inpatient rehabilitation unit for a second time on 09/05/2016 following a cholecystectomy. Prior to that the patient had been in the rehabilitation unit on 07/23/2016 following a triple A repair. The patient has a history of the gangrenous cholecystitis and cholelithiasis, history of ascending thoracic aneurysm repair, anemia of acute blood loss secondary to laparoscopic cholecystectomy, hypertension, and gastroesophageal reflux disease. The patient does have a small open area on his bottom. He is continent of bowel and bladder. He does have a couple of open areas on his abdomen with Steri- Strips and overall bruising. He is on a regular diet. Prealbumin is 10. He can complete all of his transfers independently. He can ambulate 400 feet with no device or a front-wheeled walker with cues for posture. He can climb 12 stairs with one railing at standby assistance and he can propel his wheelchair at stand-by assistance. He has met 4/9 long-term PT goals. The patient can dress his upper and lower body at standby; grooming, independent; bathing, standby; toilet and shower transfers, mod I; toileting, mod I; and feeding, independent. The patient's car transfers are currently at standby. The patient has been very open to pastoral care. DISCHARGE PLAN: The patient is receiving 3 hours of PT, OT Thursday through Thursday. The patient has daily Rehabilitation, Nursing, and Physiatry involvement as well as Therapeutic Recreational Services 4 days per week. The patient has shown functional improvement and is progressing. Please see his plan of care for specific goals. Plan is for patient to discharge on 09/11/2016. The patient will have Outpatient Therapy Services. LIZET ALBARADO FOR WALLY CORNELL MD PATIENT'S NAME: ORACIO WATERMAN [facility] AGE: 86 Y [address] ROOM: [place] [address] LOCATION: [facility] ADMIT DATE: 09/05/2016 Consultation DISCHARGE DATE: 09/11/2016 FAMILY PHYSICIAN: Jj Nava MD ATTENDING PHYSICIAN: Wally Cornell TD/artemiol /[id number] d: t: 09/24/16 1801, CONSULTATION REPORT
[~2016-09-05 10:17] MED LIST changes: +ASPIRIN (CHILDR81 MG PO; +BENADRYL25 MG PO; +BUMEX1 MG PO; +COLACE100 MG PO; +CORDARONE,PACE200 MG PO; +COREG 3.1253.125 MG PO; +K-TAB OR KLOR-10 MEQ PO; +KLONOPIN0.5 MG PO; +LIPITOR10 MG PO; +NORCO 5-325 TA1 EACH PO; +PEPCID20 MG PO; +PREPARATION H O57 GM TOP; +PROVENTIL OR V6.7 GM INH; +TYLENOL325 MG PO; +ULTRAM50 MG PO
--- NOTE | 2016-09-05 14:31 | NUR ---
PATIENT ADMITTED TO [facility] FROM [facility]. AAA REPAIR IN JULY, GIOVANNY ANAYA ON 08/25. AMBULATES WITH 1 ASSIST, WALKER, GAIT BELT. ALERT AND ORIENTED X3. 4 LAP SITES PRESENT, STERI STRIPPED. INCISIONS FROM AAA REPAIR INTACT AND HEALED. PATIENT DENIES PAIN. VITALS STABLE ON ROOM AIR. TELE ON, WAITING FOR ORDER TO DC. PILLS WHOLE WITH WATER. IV TO RIGHT ARM.
[2016-09-05 21:31] LABS: BILIRUBIN URINE NEGATIVE (NEGATIVE); BLOOD URINE 10 /UL (NEGATIVE); COLOR URINE YELLOW (YELLOW); GLUCOSE URINE NEGATIVE (NEGATIVE); KETONE URINE NEGATIVE (NEGATIVE); LEUKOCYTES URINE NEGATIVE /UL (NEGATIVE); NITRITE URINE NEGATIVE (NEGATIVE); PROTEIN URINE NEGATIVE (NEGATIVE); SPEC GRAVITY URINE 1.015 (1.003-1.035); TURBIDITY URINE CLEAR (CLEAR); UROBILINOGEN URINE 1 mg/dL (NORMAL)
[2016-09-05 21:41] LABS: RBC URINE NEGATIVE #/HPF (NEGATIVE); WBC URINE 0-2 #/HPF (NEGATIVE)
[2016-09-05 21:42] LABS: BACTERIA URINE NEGATIVE (NEGATIVE); EPITHELIAL URINE RARE #/HPF (NEGATIVE)
--- NOTE | 2016-09-06 03:46 | NUR ---
Significant Event:Reminders given to call staff prior to getting up, using walker and one assist. Needs reminders to stand tall when walking. Very bruised abdomen of different hues, states discomfort to lower/mid rt side of abdomen, slightly firm to one area with large shola bruise to this area. Has steristrips to stab wounds on abd from lap cortez, only scant old drainage beneath the one at umbilicus. Healed incision to sternal chest from triple A repair. Coccyx reddened, aloevesta cream applied. Saline lock to rt forearm, no blood return but does flush. 101/50. Had scheduled Naprosyn at hs, no prn meds given. Rates discomfort at 1-2. Small bm on day shift yest. 1590 oral intake, has voided x 3. UA collected and shows blood, otherwise negative. Had liquids for supper, no solids but did take Ensure. Follow up: Inquire about removal of saline lock.
[2016-09-06 05:16] LABS: BASOPHIL % 0.5 %; EOSINOPHIL # 0.3 K/uL (0.0-0.5); HEMATOCRIT 29.2 % (33.0-50.0); HEMOGLOBIN 9.1 g/dL (11.0-16.0); IMMATURE GRANULOCYTE % 0.6 %; LYMPHOCYTE # 1.1 K/uL (0.8-4.0); LYMPHOCYTE % 17.3 %; MCH 29.4 pg (27.0-34.0); MCHC 31.2 gm/dL (32.0-36.5); MCV 94.5 fl (83.0-98.0); MONOCYTE # 0.9 K/uL (0.0-1.0); MONOCYTE % 13.9 %; MPV 9.9 fl (9.4-12.4); NEUTROPHIL # (ANC) 4.2 K/uL (1.4-9.0); NEUTROPHIL % 63.7 %; NRBC % 0 /100WBC (0-0.00); PLATELET COUNT 225 K/uL (150-450); RBC 3.09 M/uL (3.50-5.50); RDW-CV 16.7 % (11.9-14.6); WBC 6.6 K/uL (4.0-11.0)
[2016-09-06 05:28] LABS: INR - (THERAPEUTIC) 1.2 (0.9-1.1); PROTIME 12.8 SECONDS (9.6-11.1)
[2016-09-06 05:30] LABS: ALBUMIN 2.4 gm/dL (3.5-5.0); ALK PHOS 85 IU/L (33-138); ALT 20 IU/L (12-78); ANION GAP 12.4 (10.0-19.0); AST 28 IU/L (10-40); BLOOD UREA NITROGEN 21 mg/dL (6-24); CALCIUM 8.4 mg/dL (8.5-10.5); CHLORIDE 100 mMol/L (96-110); CO2 28 mMol/L (22-32); CREATININE 0.7 mg/dL (0.6-1.3); ESTIMATED GFR (MDRD EQUATION) > 60; POTASSIUM 3.4 mMol/L (3.7-5.1); SODIUM 137 mMol/L (135-145); TOTAL PROTEIN 6.2 g/dL (6.0-8.4)
[2016-09-06 05:34] LABS: TOTAL BILIRUBIN 0.8 mg/dL (0.0-1.5)
--- NOTE | 2016-09-06 16:34 | NUR ---
Significant Event:PATIENT ALERT AND ORIENTED THIS SHIFT. VSS. TRANSFERS WITH MIN SBA. DID GO TO THERAPY THIS AFTERNOON. REPORTS THAT THERAPIST TOLD HIM HE COULD TRANSFER TO BATHROOM BY HIMSELF. WILL HAVE TO CHECK WITH THERAPY TOMORROW SHE WAS GONE ALREADY. HAS DENIED PAIN TODAY. HAS EATEN FAIR. UP IN WHEELCHAIR FOR AWHILE TODAY AND THEN TO RECLINER TO REST. NO OTHER COMPLAINTS. Follow up:
--- NOTE | 2016-09-07 05:32 | NUR ---
Alert and oriented. BP a bit low @ 100/56. Up ad jory to bathroom, as pt states therapy gave him the okay yesterday. Please check with them today to be sure. Sleeps in recliner. Denies need for pain meds. Steristrips intact over abdominal surgical stab wounds. Significant ecchymosis to lower and rt side of abdomen.
--- NOTE | 2016-09-07 14:06 | NUR ---
Significant Event: Alert and oriented x 3. Up ad jory with walker. Denies pain. Family present this afternoon. Participated in some therapy this morning. Uses call light appropriately. Follow up:
--- NOTE | 2016-09-08 04:37 | NUR ---
Alert and oriented. Calls for assistance as needed. Up ad jory with walker.Denies need for pain meds. BP= 108/56. Need to order his breakfast at 7am. Just banana and 2% milk
--- NOTE | 2016-09-08 14:23 | NUR ---
Significant Event:PATIENT ALERT AND ORIENTED THIS SHIFT. VSS. TRANSFERS INDEPENDANTLY. RESTS IN RECLINER WHEN NOT IN THERAPY. HAS DENIED PAIN THIS SHIFT. HAS LOTS OF BRUISING TO ABDOMEN YET BUT IS HEALING WELL. DOES HAVE A COUPLE STERI STRIPS YET. NO OTHER COMPLAINTS. Follow up:
--- NOTE | 2016-09-09 02:56 | NUR ---
Significant Event: Patient alert and oriented x 3. VSS. Up ad jory in room. Denies pain or discomfort. Abdomen with bruising t/o, 4 stab sites healing well with steri strips. Abdomen is distended patient feels bloated. States no BM for 2 days. May need some MOM tonight if no BM today. Sleeps in recliner. Follow up: Monitor for BM.
--- NOTE | 2016-09-09 08:30 | NUR ---
D: Therapeutic Recreation Initial Assessment on the 09/09/16. I: Patient seen for 2 units to begin initial evaluation. Pt his known to Therapies from prior admission. 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 Information obtained: Interview, Chart Review, Observation, other. BARRIERS TO LEISURE: Physical, Lifestyle (1-2+drinks per night) Transportation Patient determined to be: APPROPRIATE FOR THERAPEUTIC RECREATION ASSESSMENT. TREATMENT WILL INCLUDE: Community living skills training Functional leisure development Physical skills development Cognitive skills development Social skills development Leisure education Emotional/behavioral adaptation Family education Community resources/packet TARGET EQUIPMENT/INFORMATION: Parking Permit WILL NEED Community Resources Energy conservation in community setting Van/Service/Taxi Scrip Adapted Leisure Equipment Stress management/Relaxation techniques Functional car transfers Leisure Education Behaviors: Attitude, Awareness, Participation. Patient functional skills level and potential: Good, pt demonstrates good mobility with concerns for coping and adjustment to current physical limitations. Patient oriented ot TR services on Rehab unit. Pt/family provided input into goals setting and plan of care. Pt's goal to return home, be independent and resume prior lifestyle. P: Target date set with personal goals established. Will continue with POC focusing on pt/family training and education. For additional information please see Nursing Data Base, PT, OT, CM, initial assessments to [facility] and Interdisciplinary Assessments.
--- NOTE | 2016-09-09 13:17 | NUR ---
A-SCREENED D/T LOS; NEW ADMIT TO [facility] AAA REPAIR JULY 2016; INTACT AND HEALED. LAP JACLYN ON 08/25/16 HT: 70 IN. CBW 91.9 KG; ADMIT WT 91.1 KG. BMI 29.0 LABS: NA 137, K+ 3.4, GLU 91, BUN 21, SPUD DRILLER 0.7, ALB 2.4 MEDS: BUMEX, PROTONIX, COLACE, KLONOPIN, LIPITOR, NORCO, ULTRAM, ZOFRAN DIET RX: REGULAR W/ENSURE ENLIVE TID AND ENSURE PUDDING BID. PO INTAKE HAS BEEN 75-100% FOR THE MOST PART. EXPECT TO SEE PREALB TREND UP WITH CONTINUED GOOD PO INTAKE. EST NUTR NEEDS: 5558-1361 KCALS (20-25 KCALS/KG) 92-110 GM PROTEIN (1.0-1.2 GM/KG) 1 ML FLUID/KCAL D-NOT AT NUTRITION RISK; NO NUTRITION DX IDENTIFIED. I-1)D/C ENSURE ENLIVE AT BRK; CONTINUE BID AT L/D 2)CONTINUE ENSURE PUDDING AT L/D M/E-GOAL: PO INTAKE >/=75% FOR DURATION OF ADMIT 1)F/U PO INTAKE, LABS, WT, AND POC IN 6-8 DAYS 2)ASSIST NEEDED
--- NOTE | 2016-09-09 15:22 | NUR ---
Significant Event:PATIENT ALERT AND ORIENTED THIS SHIFT. VSS. TRANSFERS INDEPENDANTLY. STEADY ON HIS FEET. RESTS IN RECLINER WHEN NOT IN THERAPY. ABDOMEN HAS MULTIPLE ECCHYMOTIC AREAS FROM SURGERY AND INCISIONS. INCISIONS HEALING. STILL HAS A COUPLE STERI STRIPS IN PLACE. HAS DENIED PAIN THIS SHIFT. NO OTHER COMPLAINTS. Follow up:
--- NOTE | 2016-09-09 16:11 | NUR ---
D: TR progress note for 09/09/13. I: Pt seen for 2 units at 1230 for community integration skills building, functional transfers, and safety awareness. R: Pt seen for functional skills building working on mobility, safety, awareness and functional transfers to increase independence in anticipation for discharge back into community. Pt transferred sit > stand from WC SBA, ambulated to/from vehicle SBA and transferred in/out of vehicle SBA with cues for safety. Pt was mod I for BLE management and positioning of self with seat surface adapted using trash bag to ease task. Pt tolerated ride with no C/o pain or discomfort. P: Will continue to see to address goals and plan of care.
--- NOTE | 2016-09-10 04:33 | NUR ---
Significant Event: PATIENT IS ALERT AND ORIENTED. VSS. UP AD JOSE IN ROOM. DENIES PAIN. BRUISING NOTED TO ABDOMEN WELL PUNCTURE SITES. PATIENT HAD BM YESTERDAY. Follow up:
--- NOTE | 2016-09-10 10:29 | NUR ---
Significant Event:PT REPORTED HE WAS TIRED THIS AM. THERAPY SHOWERED, AND DRESSED. ATE MEAL IN ROOM. NO COMPLAINTS OF PAIN. TAKES MEDS WITHOUT DIFFICULTY. ADB INCISIONS HEALING, FEW STERI STRIPS IN PLACE. PT PLANS FOR DISCHARGE TOMORROW. PT HAS BEEN PLEASANT AND COOPERATIVE WITH PLAN OF CARE. Follow up:UP AD JOSE.
--- NOTE | 2016-09-10 11:41 | NUR ---
D: TR progress note for 09/10/16. I: Pt seen for 2 units at 1100 in group session for education on pain/stress management, coping strategies, group participation and leisure education. R: Pt seen for functional skills building working on stress management, relaxation and education on signs and symptoms of depression to promote recovery. Pt actively participated in session, completed functional social communication skills independently which involved personal introduction of self and hometown. Education completed by verbal discussion on the physical stress/pain can cause the body and how it affects healing along with identification of coping strategies, relaxation techniques, and options available. Pt initiated comments with peers/staff with bright affect and good insight. P: Will continue to see to address goals and plan of care.
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
[2016-09-11] MEDS ORDERED: PROTONIX40 MG PO (09:03)
[2016-09-11] MEDS ORDERED: PLAVIX75 MG PO (09:04)
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
--- NOTE | 2016-09-11 14:13 | NUR ---
Significant Event: PATIENT ALERT AND ORIENTED. MOD I IN ROOM. PATIENT LEAVING TODAY TO GO BACK HOME TO [place] WITH . [id number] PICKED UP PATIENT AROUND 1400, PATIENT RECEIVED TEACHING FOR NEW MEDICATIONS AND THERAPY SCRIPT WITH NOTES TO GIVE TO OUTPATIENT THERAPY OF HIS CHOOSING Follow up:
== END 2016-09-11 14:08 | disposition disaster alternative care site (69) | DRG 945 ==
LOC: GIRP 10:17
PROVIDERS: ADMIT Physical Medicine & Rehabilitation
DX: R53.1 Weakness (principal); D62 Acute posthemorrhagic anemia; J44.9 Chronic obstructive pulmonary disease, unspecified; G40.909 Epilepsy, unspecified, not intractable, without status epilepticus; Z98.890 Other specified postprocedural states; Z90.49 Acquired absence of other specified parts of digestive tract; I10 Essential (primary) hypertension; R26.9 Unspecified abnormalities of gait and mobility; K21.9 Gastro-esophageal reflux disease without esophagitis; Z79.82 Long term (current) use of aspirin; Z79.899 Other long term (current) drug therapy; N40.0 Benign prostatic hyperplasia without lower urinary tract symptoms; E78.5 Hyperlipidemia, unspecified
CPT/HCPCS: J1650